=== PATIENT | female | born 1945 | race American Indian/Alaskan Native ===

== ENCOUNTER 2019-02-17 09:27 | Emergency (ER) | payer MEDICARE ==
--- NOTE | 2019-02-17 09:49 | Emergency Department Report ---
ED Extremity Problem HPI - General Chief complaint: Extremity Problem,Nontraumatic Stated complaint: LFT SIDE HIP/BACK PAIN Time Seen by Provider: 02/17/19 09:43 Source: patient Mode of arrival: Wheelchair Limitations: No Limitations - History of Present Illness Initial comments: 73-year-old female with chronic lower back and left hip pain. Moved here from [place] 2 months ago. Prior to that was being seen by pain management receiving monthly hydrocodone/Tylenol 5/325 mg prescriptions. Last dose of narcotics was in December when her last prescription ran out. These of ongoing pain without new injury and states that none of her previous treatments including narcotics, left hip, or lower back injections have ever helped her pain. She denies urinary incontinence, focal weakness, numbness, or fever. Patient's new local PMD Dr. Tapia informed her that he couldnt prescribe narcotics. - Related Data Previous Rx's Medication Instructions Recorded Last Taken Type HYDROcodone/APAP 5-325 [[place] 1 each PO Q6HR PRN #15 tablet 02/17/19 Unknown Rx 5/325] Allergies Allergy/AdvReac Type Severity Reaction Status Date / Time No Known Allergies Allergy Unverified 02/17/19 09:34 ED Review of Systems ROS: Stated complaint: LFT SIDE HIP/BACK PAIN Other details as noted in HPI Comment: All other systems reviewed and negative ED Past Medical Hx - Past Medical History Previous Medical History?: Yes Hx Hypertension: Yes Hx Congestive Heart Failure: Yes Hx Diabetes: Yes Hx Renal Disease: Yes Additional medical history: Breast CA. Scoliosis - Surgical History Past Surgical History?: Yes Additional Surgical History: Kidney transplant. lumpectomy - Social History Smoking Status: Never Smoker Substance Use Type: None - Medications Home Medications: Home Medications Medication Instructions Recorded Confirmed Last Taken Type HYDROcodone/APAP 5-325 [[place] 1 each PO Q6HR PRN #15 tablet 02/17/19 Unknown Rx 5/325] ED Physical Exam - General Limitations: No Limitations - Other Other exam information: Gen.: No acute distress Head: Atraumatic Eyes: Normal appearance ENT: Moist mucous membranes Neck: Normal appearance, no posterior midline tenderness, no meningismus Chest: Clear to auscultation bilaterally Cardiovascular: Regular rate and rhythm Abdomen: Normal appearance, soft, nontender, no rebound or guarding, normal bowel sounds Back: Normal appearance, diffuse generalized back tenderness Extremity: Pain with movement and left hip with mild tenderness to palpation. No deformity Neuro: Alert, clear speech, no focal motor or sensory deficit Psychiatric: Appropriate Skin: No rash ED Course Vital Signs 02/17/19 09:35 Temperature 98.9 F Pulse Rate 81 Respiratory 15 Rate Blood Pressure 145/84 O2 Sat by Pulse 96 Oximetry ED Medical Decision Making - Radiology Data Radiology results: report reviewed LEFT HIP, 2 VIEWS INDICATION: left hip pain, chronic but worsening. COMPARISON: None. IMPRESSION: Osteopenia is evident. Perhaps minimal osteoarthritic changes are identified. No evidence for fracture, dislocation, bone lesion or osteonecrosis. L spine xray: see report, chronic findings. no acute fxt - Medical Decision Making Pt has chronic pain patient and as part [facility] prescription monitoring site she last filled 45 tablets of Lorcet 5/325 on December 26. She was counseled on the importance outpatient follow-up with a silk screen painter lives. No acute injury identified on today's evaluation - Differential Diagnosis chronic pain, pathologic fracture Critical Care Time: No Critical care attestation.: If time is entered above; I have spent that time in minutes in the direct care of this critically ill patient, excluding procedure time. ED Disposition Clinical Impression: Acute exacerbation of chronic low back pain, Chronic left hip pain, Arthritis, Scoliosis Disposition: TO HOME OR SELFCARE Is pt being admited?: No Does the pt Need Aspirin: No Condition: Stable Instructions: Chronic Back Pain (ED), Chronic Pain (ED), Osteoarthritis (ED) Additional Instructions: Take the medication as prescribed. Follow-up with your doctor or with the doctor/clinic provided. Return if symptoms worsen as indicated by your discharge instructions. Prescriptions: HYDROcodone/APAP 5-325 [[place] 5/325] 1 each PO Q6HR PRN #15 tablet PRN Reason: Pain Referrals: ALEJANDRA TAPIA JR, MD [Referring] - 3-5 Days PANDA RICO MD [Staff Physician] - 3-5 Days (orthopedic ) Time of Disposition: 11:14
[2019-02-17] MEDS ORDERED: PERCOCET 5/325 PO ONE (10:02)
--- NOTE | 2019-02-17 11:03 | XRay Report ---
LEFT HIP, 2 VIEWS INDICATION: left hip pain, chronic but worsening. COMPARISON: None. IMPRESSION: Osteopenia is evident. Perhaps minimal osteoarthritic changes are identified. No eviden ce for fracture, dislocation, bone lesion or osteonecrosis. Signer Name: Mendez Rhoades Jr, MD Signed: 02/17/2019 10:59 AM Workstation Name: [id number]
--- NOTE | 2019-02-17 11:05 | XRay Report ---
LUMBOSACRAL SPINE, 3 VIEWS INDICATION: lower back pain, chronic but worsening. COMPARISON: None. IMPRESSION: Osteopenia is evident. There is moderate thoracolumbar scoliosis with levocurvature in the lumbar region. There is 3 mm anterolisthesis of L4 with respect to L5 on the lateral view. Multi level degenerative disc disease and facet arthropathy are identified which are most pronounced at T11 -12 and T12-L1. No evidence for compression deformity, displaced fracture or bone lesion. The sacrum and SI joints are unremarkable. Signer Name: Mendez Rhoades Jr, MD Signed: 02/17/2019 11:01 AM Workstation Name: [id number]
[2019-02-17 12:07] VITALS: BP 141/82
== END 2019-02-17 11:30 | disposition home or self-care (01) ==
LOC: ED 09:27
DX: M41.9 Scoliosis, unspecified (principal); M19.90 Unspecified osteoarthritis, unspecified site; M25.552 Pain in left hip; M54.5 Low back pain; G89.29 Other chronic pain; I11.0 Hypertensive heart disease with heart failure; I50.9 Heart failure, unspecified; E11.9 Type 2 diabetes mellitus without complications; Z98.890 Other specified postprocedural states
CPT/HCPCS: 72100